=== PATIENT | female | born 1995 | race Caucasian/White ===

== ENCOUNTER 2017-09-10 10:37 | Emergency (ER) | payer MEDICAID ==
[~2017-09-10] VITALS: Ht 157.5 cm; Wt 81.0 kg
[~2017-09-10 10:37] MED LIST: ADVIL PO; LEVO500T2 PO; METR250T PO
[2017-09-10 11:30] LABS: BASOPHILS % 0.5 % (0.0-2.0); EOSINOPHILS % 0.8 % (0.0-5.0); HEMATOCRIT. 40.2 % (36.0-48.0); HEMOGLOBIN. 13.5 g/dL (12.0-16.0); LYMPHOCYTES % 24.3 % (20.0-50.0); MEAN CORPUSCULAR HEMOGLOBIN 28.2 pg (28.0-32.0); MEAN PLATELET VOLUME 7.2 fl (7.4-10.4); MONOCYTES % 8.6 % (2.0-8.0); NEUTROPHILS % 65.8 % (40.0-76.0); PLATELET 321 x1000/uL (130-400); RED BLOOD CELL COUNT 4.78 mill/uL (4.2-5.4); RED CELL DISTRIBUTION WIDTH 14.2 % (11.6-14.6)
[2017-09-10 11:34] LABS: CHLORIDE 104 mEq/L (98-107)
[2017-09-10 11:45] LABS: B-HCG QUANTITATIVE 28 mIU/mL (<3)
[2017-09-10 12:14] LABS: CLARITY URINE CLEAR (CLEAR); COLOR URINE YELLOW (YELLOW); KETONES URINE NEGATIVE (NEGATIVE); LEUKOCYTE ESTERASE URINE NEGATIVE (NEGATIVE); NITRITE URINE NEGATIVE (NEGATIVE); OCCULT BLOOD URINE 3+ (NEGATIVE); PH URINE 8.5 (4.5-8.0); PROTEIN URINE 1+ (NEGATIVE); SPECIFIC GRAVITY URINE 1.016 (1.005-1.030); UROBILINOGEN URINE 0.2 E.U./dL (0.2-1.0)
[2017-09-10 13:50] LABS: METHADONE URINE SCREEN NEGATIVE (NEGATIVE)
[2017-09-10 13:51] LABS: *AMPHETAMINES SCREEN URINE NEGATIVE (NEGATIVE); *BARBITURATES SCREEN URINE NEGATIVE (NEGATIVE); *BENZODIAZEPINES SCREEN URINE NEGATIVE (NEGATIVE); *COCAINE SCREEN URINE NEGATIVE (NEGATIVE); CANNABINOID URINE SCREEN NEGATIVE (NEGATIVE); OPIATES URINE SCREEN NEGATIVE (NEGATIVE); PHENCYCLIDINE URINE SCREEN NEGATIVE (NEGATIVE)
[2017-09-10] MEDS ORDERED: MISOPROSTOL 200MCG TABLET PO ONE (16:30)
[2017-09-10] MEDS ORDERED: METHYLERGONOVINE MALEATE 0.2MG TABLET PO ONE (16:30)
[2017-09-10 17:50] VITALS: BP 118/72
== END 2017-09-10 17:56 | disposition home or self-care (01) ==
LOC: ER 12:46
DX: O26.891 Other specified pregnancy related conditions, first trimester (principal); O20.9 Hemorrhage in early pregnancy, unspecified; O99.281 Endocrine, nutritional and metabolic diseases complicating pregnancy, first trimester; O99.341 Other mental disorders complicating pregnancy, first trimester; O26.831 Pregnancy related renal disease, first trimester; E88.09 Other disorders of plasma-protein metabolism, not elsewhere classified; Z3A.01 Less than 8 weeks gestation of pregnancy; O34.81 Maternal care for other abnormalities of pelvic organs, first trimester; N83.201 Unspecified ovarian cyst, right side; F41.9 Anxiety disorder, unspecified
CPT/HCPCS: 36415; 76801; 80053; 80305; 81003; 83036; 84702; 85025; 85610; 85730; 99285

== ENCOUNTER 2018-08-26 05:53 | Emergency (ER) | payer MEDICAID, OTHER ==
[~2018-08-26] VITALS: Ht 157.5 cm; Wt 88.0 kg
[2018-08-26 07:01] VITALS: BP 110/64
[2018-08-26 08:08] LABS: CLARITY URINE CLEAR (CLEAR); COLOR URINE YELLOW (YELLOW); KETONES URINE NEGATIVE (NEGATIVE); LEUKOCYTE ESTERASE URINE NEGATIVE (NEGATIVE); NITRITE URINE NEGATIVE (NEGATIVE); OCCULT BLOOD URINE 1+ (NEGATIVE); PH URINE 5.5 (4.5-8.0); PROTEIN URINE NEGATIVE (NEGATIVE); SPECIFIC GRAVITY URINE 1.011 (1.005-1.030); UROBILINOGEN URINE 0.2 E.U./dL (0.2-1.0)
== END 2018-08-26 08:56 | disposition home or self-care (01) ==
LOC: ER 05:53
DX: S46.912A Strain of unspecified muscle, fascia and tendon at shoulder and upper arm level, left arm, initial encounter (principal); F41.9 Anxiety disorder, unspecified; M54.40 Lumbago with sciatica, unspecified side; Z79.899 Other long term (current) drug therapy; V49.88XA Car occupant (driver) (passenger) injured in other specified transport accidents, initial encounter; Y93.89 Activity, other specified; Y92.89 Other specified places as the place of occurrence of the external cause; Y99.8 Other external cause status
CPT/HCPCS: 81003; 81025; 99283; Z7610; 99284

== ENCOUNTER 2019-03-06 22:11 | Emergency (ER) | payer OTHER ==
[~2019-03-06] VITALS: Ht 157.5 cm; Wt 87.0 kg
[2019-03-07] MEDS ORDERED: ACETAMINOPHEN 325MG TABLET PO ONE (00:45)
[2019-03-07 02:09] VITALS: BP 102/67
[2019-03-07] MEDS ORDERED: AMOXICILLIN/POTASSIUM CLAVULANATE 875/125MG TAB PO ONE (02:15)
[2019-03-07] MEDS ORDERED: DEXAMETHASONE 10 MG/ML VIAL IM ONE (02:15)
[2019-03-07 03:02] LABS: CLARITY URINE CLOUDY (CLEAR); COLOR URINE YELLOW (YELLOW); KETONES URINE NEGATIVE (NEGATIVE); LEUKOCYTE ESTERASE URINE 2+ (NEGATIVE); NITRITE URINE NEGATIVE (NEGATIVE); OCCULT BLOOD URINE 3+ (NEGATIVE); PROTEIN URINE NEGATIVE (NEGATIVE); SPECIFIC GRAVITY URINE 1.013 (1.005-1.030); UROBILINOGEN URINE 0.2 E.U./dL (0.2-1.0)
== END 2019-03-07 03:17 | disposition home or self-care (01) ==
LOC: ER 22:11
DX: J02.9 Acute pharyngitis, unspecified (principal); F17.200 Nicotine dependence, unspecified, uncomplicated
CPT/HCPCS: 81003; 81025; 87070; 87430; 96372; 99283; J1100

== ENCOUNTER 2021-09-21 09:57 | Emergency (ER) | payer OTHER ==
[~2021-09-21] VITALS: Ht 157.5 cm; Wt 95.0 kg
[2021-09-21 09:59] VITALS: BP 127/80
[2021-09-21 11:31] LABS: BASOPHILS % 0.4 % (0.0-2.0); EOSINOPHILS % 1.8 % (0.0-5.0); HEMATOCRIT. 41.6 % (36.0-48.0); LYMPHOCYTES % 24.2 % (20.0-50.0); MEAN CORPUSCULAR HEMOGLOBIN 28.2 pg (28.0-32.0); MEAN CORPUSCULAR VOLUME 83.7 fL (81.0-99.0); MEAN PLATELET VOLUME 7.8 fl (7.4-10.4); MONOCYTES % 6.2 % (2.0-8.0); NEUTROPHILS % 67.4 % (40.0-76.0); PLATELET 291 x1000/uL (130-400); RED BLOOD CELL COUNT 4.96 mill/uL (4.2-5.4); RED CELL DISTRIBUTION WIDTH 13.7 % (11.6-14.6)
[2021-09-21 11:41] LABS: CHLORIDE 105 mEq/L (98-107)
[2021-09-21 11:47] LABS: CLARITY URINE CLOUDY (CLEAR); COLOR URINE YELLOW (YELLOW); KETONES URINE TRACE (NEGATIVE); LEUKOCYTE ESTERASE URINE 1+ (NEGATIVE); NITRITE URINE NEGATIVE (NEGATIVE); OCCULT BLOOD URINE 3+ (NEGATIVE); PH URINE 5.5 (4.5-8.0); PROTEIN URINE NEGATIVE (NEGATIVE); SPECIFIC GRAVITY URINE 1.022 (1.005-1.030); UROBILINOGEN URINE 0.2 E.U./dL (0.2-1.0)
[2021-09-21 11:50] LABS: HCG SCREEN NEGATIVE
[2021-09-21] MEDS ORDERED: FEO PR (12:11)
[2021-09-21] MEDS ORDERED: POLY17PO3 MT (12:11)
== END 2021-09-21 12:20 | disposition home or self-care (01) ==
LOC: ER 09:57
DX: K59.00 Constipation, unspecified (principal)
CPT/HCPCS: 36415; 80053; 81003; 81025; 84703; 85025; 99283

== ENCOUNTER 2021-12-14 09:16 | Emergency (ER) | payer OTHER ==
[~2021-12-14] VITALS: Ht 167.6 cm; Wt 77.0 kg
[~2021-12-14 09:16] MED LIST changes: +FEO PR; +POLY17PO3 MT
[2021-12-14 09:23] VITALS: BP 133/86
[2021-12-14] MEDS ORDERED: ACETAMINOPHEN 325MG TABLET PO STA (10:47)
[2021-12-14] MEDS ORDERED: NAPR-681 PO (12:43)
== END 2021-12-14 13:09 | disposition home or self-care (01) ==
LOC: ER 09:16
DX: R51.9 Headache, unspecified (principal)
CPT/HCPCS: 99284

== ENCOUNTER 2022-08-13 23:34 | Emergency (ER) | payer BC, OTHER ==
[~2022-08-13] VITALS: Ht 157.5 cm; Wt 96.0 kg
[~2022-08-13 23:34] MED LIST changes: +NAPR-681 PO
[2022-08-14 00:15] VITALS: BP 125/79
[2022-08-14] MEDS ORDERED: ACETAMINOPHEN 325MG TABLET PO ONE (05:30)
[2022-08-14 05:50] LABS: BASOPHILS % 0.3 % (0.0-2.0); EOSINOPHILS % 0.4 % (0.0-5.0); HEMATOCRIT. 39.2 % (36.0-48.0); HEMOGLOBIN. 13.4 g/dL (12.0-16.0); LYMPHOCYTES % 46.4 % (20.0-50.0); MEAN CORPUSCULAR HEMOGLOBIN 28.7 pg (28.0-32.0); MEAN CORPUSCULAR VOLUME 83.8 fL (81.0-99.0); MEAN PLATELET VOLUME 7.6 fl (7.4-10.4); MONOCYTES % 9.5 % (2.0-8.0); NEUTROPHILS % 43.4 % (40.0-76.0); PLATELET 199 x1000/uL (130-400); RED BLOOD CELL COUNT 4.67 mill/uL (4.2-5.4)
[2022-08-14 05:51] LABS: CHLORIDE 104 mEq/L (98-107)
[2022-08-14 06:00] LABS: HCG SCREEN NEGATIVE
[2022-08-14 08:19] LABS: CLARITY URINE CLOUDY (CLEAR); COLOR URINE YELLOW (YELLOW); KETONES URINE TRACE (NEGATIVE); LEUKOCYTE ESTERASE URINE 1+ (NEGATIVE); NITRITE URINE NEGATIVE (NEGATIVE); OCCULT BLOOD URINE 2+ (NEGATIVE); PH URINE 5.5 (4.5-8.0); PROTEIN URINE NEGATIVE (NEGATIVE); SPECIFIC GRAVITY URINE 1.022 (1.005-1.030)
[2022-08-14] MEDS ORDERED: NITR-87 MT (09:23)
[2022-08-14] MEDS ORDERED: TOPUD MT (09:24)
[2022-08-14] MEDS ORDERED: IBUP-2029 MT (09:24)
== END 2022-08-14 11:57 | disposition home or self-care (01) ==
LOC: ER 23:34
DX: N93.9 Abnormal uterine and vaginal bleeding, unspecified (principal)
CPT/HCPCS: 36415; 80053; 81003; 84703; 85025; 99283